=== PATIENT | female | born 1960 | race Caucasian/White ===

== ENCOUNTER 2021-08-24 02:05 | Inpatient (IN) ==
[2021-08-24] MEDS ORDERED: Acetaminophen 325 MG TABLET PO PRN (04:13)
[2021-08-24] MEDS ORDERED: Naloxone 0.4 MG/ML INJ IVP PRN (04:13)
[2021-08-24] MEDS ORDERED: Melatonin 3 MG TABLET PO PRN (04:13)
[2021-08-24] MEDS ORDERED: Ondansetron ODT 4 MG TAB.RAPDIS SL PRN (04:13)
[2021-08-24] MEDS ORDERED: Perflutren Lipid Microsphere 1.3 ML in 0.9 % Sodium Chloride 8.7 ML IVP PRN (04:16)
[2021-08-24 06:00] LABS: Alanine Aminotransferase 17 Units/L (7-52); Albumin 3.6 g/dL (3.5-5.7); Albumin/Globulin Ratio 1.7 (1.1-2.2); Alkaline Phosphatase 41 Units/L (34-104); Aspartate Amino Transferase 14 Units/L (13-39); BUN/Creatinine Ratio 18 (6-26); Bilirubin,Total 0.2 mg/dL (0.3-1.0); Blood Urea Nitrogen 13 mg/dL (8-23); Calcium 9.3 mg/dL (8.6-10.3); Carbon Dioxide 23 mEq/L (23-29); Chloride 111 mEq/L (98-107); Globulin 2.1 g/dL (2.4-3.5); Glucose 117 mg/dL (70-105); Magnesium 1.9 mg/dL (1.6-2.6); Osmolality,Calculated 293 (280-300); Potassium 3.9 mEq/L (3.5-5.1); Sodium 141 mEq/L (136-145); Total Protein 5.7 g/dL (6.4-8.9); eGFR For African Americans > 60 (> 60); eGFR For Non-African Americans > 60 (> 60)
[2021-08-24 06:14] LABS: Triiodothyronine (T3) Free 2.86 pg/mL (2.50-3.90)
[2021-08-24] MEDS ORDERED: *HR* Heparin 5,000 UNIT/ML VIAL IVP ONE (08:03)
[2021-08-24] MEDS ORDERED: *HR* Heparin 5,000 UNIT/ML VIAL IVP PRN ×2 (08:03)
[2021-08-24] MEDS ORDERED: Heparin 25,000UNIT/250ML 1/2NS 25,000 UNIT/250 ML IV.SOLN IVC SCH (08:15)
[2021-08-24] MEDS: Heparin 25,000 UNIT/250 ML 25,000 UNIT/250 ML IV.SOLN IVC SCH (09:30)
[2021-08-24] MEDS: Thyroid (Amour) 30 MG TABLET PO SCH (09:33)
[2021-08-24] MEDS: [UNRECOGNIZED DRUG - OTHER] PO SCH (09:35)
[2021-08-24] MEDS: Lysine 1,000 MG PO SCH (09:35)
[2021-08-24] MEDS: Metoprolol XL (24 HR) Succ 25 MG TAB.ER.24H PO SCH ×2 (13:24→21:11)
[2021-08-24] MEDS: Progesterone, Micronized [Progesterone] 200 MG PO SCH (21:16)
[2021-08-25] MEDS: Heparin 25,000 UNIT/250 ML 25,000 UNIT/250 ML IV.SOLN IVC SCH ×2 (00:24→23:32)
[2021-08-25 02:29] LABS: Basophils % 0.5 %; Eosinophils # 0.2 K/mcL (0.0-0.6); Eosinophils % 2.7 %; Hematocrit 39.3 % (35.3-44.9); Hemoglobin 13.3 g/dL (11.5-15.4); Immature Granulocytes % 0.3 % (0-4); Lymphocytes # 2.1 K/mcL (0.6-4.6); Lymphocytes % 35.5 %; Mean Corpuscular HGB Conc 33.8 g/dL (31.6-35.5); Mean Corpuscular Hemoglobin 29.3 pg (28.0-33.3); Mean Corpuscular Volume 86.6 fL (83.0-100.0); Mean Platelet Volume 9.5 fL (9.4-12.4); Monocytes # 0.5 K/mcL (0.0-1.3); Monocytes % 8.1 %; Neutrophils # 3.1 K/mcL (1.6-8.9); Platelet Count 192 K/mcL (140-400); Red Blood Count 4.54 M/mcL (3.82-4.97); Red Cell Distribution Width 12.3 % (11.5-14.5); Segmented Neutrophils % 52.9 %; White Blood Count 5.9 K/mcL (4.3-11.1)
[2021-08-25 02:45] LABS: BUN/Creatinine Ratio 12 (6-26); Blood Urea Nitrogen 10 mg/dL (8-23); Calcium 9.1 mg/dL (8.6-10.3); Carbon Dioxide 23 mEq/L (23-29); Chloride 107 mEq/L (98-107); Glucose 112 mg/dL (70-105); Magnesium 1.8 mg/dL (1.6-2.6); Osmolality,Calculated 286 (280-300); Potassium 3.9 mEq/L (3.5-5.1); Sodium 138 mEq/L (136-145); eGFR For African Americans > 60 (> 60); eGFR For Non-African Americans > 60 (> 60)
[2021-08-25 02:48] LABS: Troponin I 0.27 ng/mL (< 0.04)
[2021-08-25] MEDS: Thyroid (Amour) 30 MG TABLET PO SCH (06:58)
[2021-08-25] MEDS: Aspirin 81 MG TAB.CHEW PO SCH (09:02)
[2021-08-25] MEDS: Metoprolol XL (24 HR) Succ 25 MG TAB.ER.24H PO SCH (09:02)
[2021-08-25] MEDS: [UNRECOGNIZED DRUG - OTHER] PO SCH (14:21)
[2021-08-25] MEDS: Lysine 1,000 MG PO SCH (14:22)
[2021-08-25 16:03] LABS: Estimated Average Glucose 108 mg/dl; Hemoglobin A1C 5.4 %
[2021-08-25] MEDS: Progesterone, Micronized [Progesterone] 200 MG PO SCH (19:57)
[2021-08-26] MEDS: Thyroid (Amour) 30 MG TABLET PO SCH (05:46)
[2021-08-26] MEDS ORDERED: 0.9 % Sodium Chloride 2,000 ML ONE (10:29)
[2021-08-26] MEDS ORDERED: Heparin 1,000 UNITS/500 mL 500 ML ONE (10:29)
[2021-08-26] MEDS ORDERED: Nitroglycerin 1,000 MCG/5 ML VIAL IV ONE (10:30)
[2021-08-26] MEDS ORDERED: ISOVUE-370 200 ML INFUS..BTL ONE (10:30)
[2021-08-26] MEDS ORDERED: *HR* Heparin 10,000 UNIT/10 ML VIAL ONE (10:30)
[2021-08-26] MEDS ORDERED: *HR* Midazolam HCl 2 MG/2 ML VIAL ONE (10:42)
[2021-08-26] MEDS ORDERED: *HR* FentaNYL (PF) 100 MCG/2 ML VIAL ONE (10:42)
[2021-08-26] MEDS ORDERED: Tirofiban 12.5 MG/250ML 12.5 MG/250 ML BAG ONE (11:19)
[2021-08-26] MEDS ORDERED: *HR* Ticagrelor 90 MG TABLET ONE (11:24)
[2021-08-26] MEDS ORDERED: Tirofiban 12.5 MG/250ML 12.5 MG/250 ML BAG IVC SCH (11:45)
[2021-08-26] MEDS: Metoprolol XL (24 HR) Succ 25 MG TAB.ER.24H PO SCH (14:53)
[2021-08-26] MEDS: Aspirin 81 MG TAB.CHEW PO SCH (14:53)
[2021-08-26] MEDS: Lysine 1,000 MG PO SCH (14:53)
[2021-08-26] MEDS: [UNRECOGNIZED DRUG - OTHER] PO SCH (14:53)
[2021-08-26] MEDS: *HR* Ticagrelor 90 MG TABLET PO SCH (20:34)
[2021-08-26] MEDS: Progesterone, Micronized [Progesterone] 200 MG PO SCH (20:35)
[2021-08-27] MEDS: Thyroid (Amour) 30 MG TABLET PO SCH (05:48)
[2021-08-27 06:10] LABS: BUN/Creatinine Ratio 17 (6-26); Blood Urea Nitrogen 15 mg/dL (8-23); Calcium 9.5 mg/dL (8.6-10.3); Carbon Dioxide 24 mEq/L (23-29); Chloride 106 mEq/L (98-107); Glucose 109 mg/dL (70-105); Osmolality,Calculated 285 (280-300); Potassium 4.3 mEq/L (3.5-5.1); Sodium 137 mEq/L (136-145); eGFR For African Americans > 60 (> 60); eGFR For Non-African Americans > 60 (> 60)
[2021-08-27 07:24] VITALS: BP 125/79; PULSE 85; TEMP 97.4; O2SAT 95
[2021-08-27] MEDS: Metoprolol XL (24 HR) Succ 25 MG TAB.ER.24H PO SCH (07:25)
[2021-08-27] MEDS: *HR* Ticagrelor 90 MG TABLET PO SCH (07:25)
[2021-08-27] MEDS: Aspirin 81 MG TAB.CHEW PO SCH (07:25)
[2021-08-27] MEDS: [UNRECOGNIZED DRUG - OTHER] PO SCH (07:26)
[2021-08-27] MEDS: Lysine 1,000 MG PO SCH (07:26)
[2021-08-27] MEDS ORDERED: Metoprolol XL (24 HR) Succ 25 MG TAB.ER.24H PO SCH (09:00)
[2021-08-27 09:26] LABS: Hematocrit 41.8 % (35.3-44.9); Hemoglobin 14.2 g/dL (11.5-15.4); Mean Corpuscular Hemoglobin 28.9 pg (28.0-33.3); Mean Corpuscular Volume 85.1 fL (83.0-100.0); Platelet Count 203 K/mcL (140-400); Red Blood Count 4.91 M/mcL (3.82-4.97); Red Cell Distribution Width 12.2 % (11.5-14.5)
[2021-08-27] MEDS ORDERED: Metoprolol XL (24 HR) Succ 25 MG TAB.ER.24H PO ONE (10:00)
[2021-08-27] MEDS ORDERED: carvediloL 6.25 MG TABLET PO ONE (10:00)
[2021-08-27] MEDS ORDERED: lisinopriL 5 MG TABLET PO SCH (11:30)
== END 2021-08-27 12:02 | disposition home or self-care (01) | DRG 246 ==
LOC: 3NENU → SUATTDRO 03:39
PROVIDERS: ADMIT Internal Medicine; ATTEND Internal Medicine